=== PATIENT | male | born 1975 | race African-American/Black ===

== ENCOUNTER 2016-06-24 17:20 | Emergency (ER) | payer SELFPAY ==
[2016-06-24 17:20] VITALS: BP 137/77
== END 2016-06-24 18:04 | disposition left against medical advice (07) ==
LOC: ER 17:20
DX: Z53.21 Procedure and treatment not carried out due to patient leaving prior to being seen by health care provider (principal)

== ENCOUNTER 2016-06-26 12:39 | Emergency (ER) | payer BC ==
[2016-06-26] MEDS ORDERED: HYDROCHLOROTHIAZIDE 25 MG TABLET PO ONE (13:29)
[2016-06-26] MEDS ORDERED: NIFEdipine 30 MG TAB.SR.24H PO ONE ×2 (13:29→13:33)
[2016-06-26] MEDS ORDERED: HYDROCHLOROTHIAZIDE 25 MG TABLET ONE (13:34)
--- NOTE | 2016-06-26 13:47 | ERNOTE ---
Medical Problem HPI - Narrative Date of Service: 06/26/16 - General Chief Complaint: General Assessment Time Seen by Provider: 06/26/16 13:09 Source: patient Exam Limitations: no limitations - Immun/Allergies/Home Medications Allergies/Adverse Reactions: Allergies Penicillins Allergy (Intermediate, Verified 06/26/16 13:14) Hives Home Medications: HOME MEDICATIONS hydrALAZINE HCL [Apresoline] 25 mg PO DAILY 01/11/15 [Last Taken 06/08/15] Hydrochlorothiazide [Hydrodiuril] 25 mg PO DAILY #30 tab 06/26/16 [Last Taken Unknown] NIFEdipine [Procardia Xl] 30 mg PO DAILY #30 tab.sr.24h 06/26/16 [Last Taken Unknown] - History of Present History Narrative: Patient comes due to the need of treatment for his elevated blood pressure. Timing: constant Severity: mild Modifying Factors - (Improves): Present: other - nothing Modifying Factors - (Worsens): Present: other - nothing Review of Systems - Review of Systems Constitutional: Present: no symptoms reported. Absent: fever, chills, weakness , malaise EYE: Present: no symptoms reported ENT: Present: no symptoms reported Respiratory: Present: no symptoms reported Cardiology: Absent: chest pain, palpitations, syncope, edema, claudication Gastrointestinal/Abdominal: Present: no symptoms reported Genitourinary: Present: no symptoms reported Musculoskeletal: Present: no symptoms reported Skin: Present: no symptoms reported Neurological: Present: no symptoms reported Endocrine: Present: no symptoms reported Hematologic/Lymphatic: Present: no symptoms reported Psych: Present: no symptoms reported - Patient's Past Medical History Patient History - Medical: No pertinent hx Patient History - Cancer: No Hx of Cancer Patient History - Surgical Procedures: No surgical history - Social History Smoking Status: Current every day smoker Have you smoked in the past 12 months: Yes Physical Exam - Physical Exam General Appearance: Present: wd/wn, alert, no apparent distress Eye Exam: Normal inspection: bilateral, PERRL: bilateral, EOMI: bilateral Ears, Nose, Throat: Present: normal ENT inspection, hearing grossly normal Neck: Present: normal inspection, nontender Respiratory: Present: no respiratory distress, normal breath sounds, no accessory muscle use, chest nontender, lungs clear Cardiovascular/Chest: Present: regular rate, rhythm, no murmur, normal peripheral pulses Gastrointestinal/Abdominal: Present: normal bowel sounds, nontender, nondistended, soft, no organomegaly Male Genitals Exam: Present: normal genitalia, normal prostate, no hernia Back Exam: Present: normal inspection, normal range of motion, no CVA tenderness , no vertebral tenderness Extremity Exam: Present: normal inspection, non-tender, no edema, normal range of motion Neurological Exam: Present: alert, oriented, normal mood/affect, no motor/ sensory deficits Skin Exam: Present: normal color, warm/dry Lymphatic Exam: Present: no adenopathy ED Progress - Date and Time Seen: Date and Time: 06/26/16 13:46 Patient will be given Tx for HTN. - Results and Orders Patient's Lab Results:: I have reviewed the patient's lab results. Results and Orders: No anemia found on CBC Patient with normal K and Creatinine - Vital Signs Patient's Vital Signs:: I have reviewed the patient's vital signs. Vital Signs: Vital Signs 06/26/16 06/26/16 13:12 13:36 Temperature 36.6 C Pulse Rate 87 87 Respiratory 14 Rate Blood Pressure 195/132 195/132 O2 Sat by Pulse 99 Oximetry - EKG EKG: NSR EKG read: Interp. by me EKG Comments: HR: 77, LVH, No ST Elevation - X-Ray X-Ray #1 X-Ray: chest X-ray Comments: Radiology Report was noticed. No acute pathology. Heart size is borderline - Progress/Reassessment Chief Complaint: General Assessment Progress:: Improved - Transfer of Care Expected Disposition: Discharge Plan - Plan Plan: Patient will be given Tx for BP and is to follow up with a PCP. Departure - Departure Clinical Impression: Hypertension Qualifiers: Hypertension type: essential hypertension Qualified Code(s): I10 - Essential ( primary) hypertension Disposition: Home self-care Condition: Stable Instructions: Managing Your High Blood Pressure Prescriptions: Hydrochlorothiazide [Hydrodiuril] 25 mg PO DAILY #30 tab NIFEdipine [Procardia Xl] 30 mg PO DAILY #30 tab.sr.24h
[2016-06-26 13:51] LABS: Hematocrit 47.9 % (42.0-52.0); Mean Cell Volume 83.9 fl (78-100); Mean Corpuscular Hemoglobin 26.3 pg (27-31); Mean Corpuscular Hgb Conc 31.3 g/dl (32-36); Mean Platelet Volume 9.2 fl (6.0-9.5); Platelet Count 257 K/mm3 (150-450); Red Blood Count 5.71 M/mm3 (4.7-6.0); Red Cell Distribution Width 13.1 % (11.5-14.0); White Blood Count 4.6 K/mm3 (4.0-10.5)
[2016-06-26 14:01] LABS: Total Cells Counted 100
[2016-06-26 14:13] LABS: Albumin * 2.9 gm/dl (3.4-5.0); Anion Gap 11.7 mmol/L (6.8-13.8); Bilirubin, Total 0.3 mg/dL (0.0-1.1); Ca. Corrected For Albumin 9.5 mg/dL (8.4-10.2); Calcium * 8.9 mg/dL (7.9-10.9); Carbon Dioxide 29.1 mmol/L (24-32.6); Potassium 3.8 mmol/L (3.4-4.6); Total Protein 7.4 gm/dL (6.2-8.2)
[2016-06-26 14:14] LABS: Atypical (Reactive) Lymph 3 % (0-2); Band 3 % (0-2.0); Lymphocyte 22 % (20-51); Monocyte 7 % (0-9); Neutrophil 65 % (42-75)
[2016-06-26 14:15] LABS: Dohle Bodies 2+
[2016-06-26 14:16] LABS: Platelet Estimate Normal (NORMAL); RBC Morphology Normal (NORMAL); Troponin I 0.052 ng/ml (0.00-0.10)
[2016-06-26 14:18] VITALS: BP 188/141
== END 2016-06-26 14:17 | disposition home or self-care (01) ==
LOC: ER 12:39
DX: I10 Essential (primary) hypertension (principal); F17.200 Nicotine dependence, unspecified, uncomplicated

== ENCOUNTER 2016-06-30 13:30 | Emergency (ER) | payer BC ==
[2016-06-30 13:31] VITALS: BP 188/141
== END 2016-06-30 13:49 | disposition home or self-care (01) ==
LOC: ER 13:30
DX: Z13.6 Encounter for screening for cardiovascular disorders (principal)